=== PATIENT | male | born 1990 | race Caucasian/White ===

== ENCOUNTER → 2016-09-22 | Outpatient (CLI) | payer BC ==
--- NOTE | 2016-09-22 15:27 | DIAGNOSTIC IMAGING REPORT ---
LEFT FOOT 3 VIEWS CLINICAL HISTORY: Left foot pain. FINDINGS: 3 views of the left foot are obtained. No prior studies are available for comparison at the time of dictation. The skeletal structures are well mineralized. No fracture is seen. The joint spaces of the foot are maintained. Soft tissue swelling is present along the dorsal aspect of the foot. A small os trigonum is incidentally noted. IMPRESSION: Soft tissues swelling with no radiographic evidence of left foot fracture. Electronically signed by: Kel Sun M.D. 09/22/2016 3:26 PM Dictated Date/Time: 09/22/2016 3:24 PM
== END | disposition home or self-care (01) ==
LOC: C.LABBC 14:58
PROVIDERS: ATTEND Physician Assistant Medical
DX: M79.672 Pain in left foot (principal)

== ENCOUNTER 2020-10-07 05:52 | Inpatient (IN) ==
[2020-10-07] MEDS ORDERED: ONDANSETRON INJ 2 MG/ML 2 ML VIAL IV STA (06:35)
[2020-10-07] MEDS ORDERED: MoRPHine SULFATE 4 MG/ML 1 ML CARP\\VIAL IV STA ×2 (06:44→10:03)
[2020-10-07 06:59] LABS: Basophils # (auto) 0.03 K/uL (0-0.2); Basophils % (auto) 0.2 %; Eosinophils # (auto) 0.07 K/uL (0-0.5); Eosinophils % (auto) 0.4 %; Hematocrit (blood only) 45.3 % (42-52); Hemoglobin 16.3 g/dL (14.0-18.0); Immature Granulocytes # (auto) 0.06 K/uL (0.00-0.02); Immature Granulocytes % (auto) 0.3 %; Lymphocytes % (auto) 8.5 %; Mean Corpuscular Hemoglobin 30.9 pg (25-34); Mean Platelet Volume 10.2 fL (7.4-10.4); Monocytes # (auto) 0.93 K/uL (0.11-0.59); Monocytes % (auto) 4.9 %; Neutrophils # (auto) 16.11 K/uL (1.4-6.5); Neutrophils % (auto) 85.7 %; Platelet Count 594 K/uL (130-400); RDW Coefficient of Variation 12.7 % (11.5-14.5); RDW Standard Deviation 40.3 fL (36.4-46.3); Red Blood Count 5.27 M/uL (4.7-6.1)
[2020-10-07 07:17] LABS: Albumin Level 4.6 gm/dl (3.4-5.0); BUN Creatinine Ratio 14.3 (10-20); Calcium 9.2 mg/dl (8.5-10.1); Creatinine Clr Calc Pharmacy 133.4 ml/min; Est GFR (African American) 131.5 ml/min; Est GFR (Non-African American) 113.5 ml/min; Potassium 3.9 mmol/L (3.5-5.1)
[2020-10-07 07:19] LABS: Albumin Globulin Ratio 1.5 (0.9-2); Bilirubin,Total 0.6 mg/dl (0.2-1); Globulin 3.1 gm/dl (2.5-4.0); Total Protein 7.7 gm/dl (6.4-8.2)
--- NOTE | 2020-10-07 07:40 | Emergency Department Note ---
History of Present Illness General Chief complaint: Flank Pain Stated complaint: SEVERE PAIN RT SIDE TORSO BT SOULDER/HIP Time Seen by Provider: 10/07/20 06:37 History of Present Illness Maximum Pain Intensity: 9 30-year-old male presents to the ED with a chief complaint of right upper qu adrant abdominal pain and lower chest pain. The patient states that his symptoms have been intermittent mainly with fatty foods. The patient states that this has been going on since April, since he had his Covid vaccine. The patient states that yesterday he had a fatty meal and felt like he was having intense gas pain and bloating in the right upper quadrant and right lower chest as well as the right shoulder blade. He states that he did have some nausea and vomiting last night. His symptoms persisted so he came to the ED this morning for evaluation. Movement seems to make his symptoms worse. Home Medications Medication Instructions Recorded Confirmed Type cetirizine 10 mg capsule (Zyrtec) 10 mg PO DAILY 09/20/18 10/07/20 History aspirin 81 mg tablet,delayed 81 mg PO DAILY 10/07/20 10/07/20 History release (Aspirin Low Dose) Allergies Allergy/AdvReac Type Severity Reaction Status Date / Time No Known Allergies Allergy Verified 10/07/20 08:15 Past Med/Surg History Medical History Allergic rhinitis Anxiety Essential thrombocytosis Family History Father Hyperglycemia Mother Hypertension Depression Social History Smoking Status: Never smoker Hx Alcohol Use: No Hx Substance Use: No Preferred Language: American current occupational status: student Physical Activity Frequency Comment: exercises regularly Review of Systems A total of 10 systems reviewed and were otherwise negative Physical Exam Vital Signs Vital Signs - 24 hr 10/07/20 05:57 10/07/20 06:17 10/07/20 06:32 Temperature 36.0 C L Temperature Source Temporal Artery Scan Pulse Rate 53 L 59 L 52 L Pulse Rate [Finger] Pulse Rate from SpO2 Sensor 58 L 52 L Respiratory Rate 24 18 26 H Respiratory Depth Normal Blood Pressure 165/87 H 162/104 H 154/92 H Blood Pressure [Right Arm] Blood Pressure Mean 113 123 112 Blood Pressure Mean [Right Arm] Pulse Oximetry 98 98 98 Oxygen Delivery Method Room Air Sepsis New/Unexplained Change in Mental Status N/A Sepsis Action Taken by Nursing No Action Required 10/07/20 06:58 10/07/20 08:15 10/07/20 09:15 Temperature Temperature Source Pulse Rate Pulse Rate [Finger] 57 L 64 62 Pulse Rate from SpO2 Sensor Respiratory Rate 18 20 18 Respiratory Depth Blood Pressure Blood Pressure [Right Arm] 154/92 H 154/98 H 151/97 H Blood Pressure Mean Blood Pressure Mean [Right Arm] 112 116 115 Pulse Oximetry 97 97 97 Oxygen Delivery Method Room Air Room Air Room Air Sepsis New/Unexplained Change in Mental Status Sepsis Action Taken by Nursing 10/07/20 10:08 Temperature Temperature Source Pulse Rate Pulse Rate [Finger] 101 H Pulse Rate from SpO2 Sensor Respiratory Rate 20 Respiratory Depth Blood Pressure Blood Pressure [Right Arm] 141/81 H Blood Pressure Mean Blood Pressure Mean [Right Arm] 101 Pulse Oximetry 98 Oxygen Delivery Method Room Air Sepsis New/Unexplained Change in Mental Status Sepsis Action Taken by Nursing CONSTITUTIONAL/VITAL SIGNS: Reviewed / noted above. GENERAL: Non-toxic in appearance. INTEGUMENTARY: Warm, dry, and [place]. HEAD: Normocephalic. EYES: without scleral icterus or trauma. ENT/OROPHARYNX: clear and moist. LYMPHADENOPATHY/NECK: Is supple without lymphadenopathy or meningismus. RESPIRATORY: Clear to auscultation bilaterally. No increased work of breathing. CARDIOVASCULAR: Regular rate and rhythm. GI/ABDOMEN: Soft and tender in the right upper quadrant. No organomegaly or pulsatile mass. EXTREMITIES: Warm and well perfused. BACK: No CVA tenderness. NEUROLOGICAL: Intact without focal deficits. PSYCHIATRIC: normal affect. MUSCULOSKELETAL: Normally developed with good muscle tone. TRIAGE NURSING DOCUMENTATION REVIEWED. Course Administered Medications Discontinued Medications Morphine Sulfate (Morphine Sulfate 4 Mg/Ml 1 Ml Carp\Vial) 4 mg IV NOW STA Stop: 10/07/20 06:45 Last Admin: 10/07/20 06:56 Dose: 4 mg Documented by: [id number] Morphine Sulfate (Morphine Sulfate 4 Mg/Ml 1 Ml Carp\Vial) 4 mg IV NOW STA Stop: 10/07/20 10:04 Last Admin: 10/07/20 10:06 Dose: 4 mg Documented by: [id number] Ondansetron HCl (Ondansetron Inj 2 Mg/Ml 2 Ml Vial) 4 mg IV NOW STA Stop: 10/07/20 06:36 Last Admin: 10/07/20 06:38 Dose: 4 mg Documented by: [id number] Medical Decision Making Differential Diagnosis Differential considered: pancreatitis, hepatitis, acute cholecystitis, AAA, UTI, pyelonephritis, kidney stones, appendicitis, diverticulitis, shingles, bowel obstruction, mesenteric ischemia, intussusception,hernia, testicular torsion. Medical Records Attestation: I reviewed the patient's medical records. Home Medications Current Medication List: was personally reviewed by me Laboratory Data Attestation: I reviewed the patient's lab results. Result diagrams: 10/07/20 06:20 10/07/20 06:20 Lab Results 10/07/20 10/07/20 10/07/20 Range/Units 06:20 06:20 09:20 WBC 18.80 H (4.8-10.8) K/uL RBC 5.27 (4.7-6.1) M/uL Hgb 16.3 (14.0-18.0) g/dL Hct 45.3 (42-52) % MCV 86.0 (80-100) fL MCH 30.9 (25-34) pg MCHC 36.0 (32-36) g/dL RDW Std Deviation 40.3 (36.4-46.3) fL RDW Coeff of Yahir 12.7 (11.5-14.5) % Plt Count 594 H (130-400) K/uL MPV 10.2 (7.4-10.4) fL Immature Gran % (Auto) 0.3 % Neut % (Auto) 85.7 % Lymph % (Auto) 8.5 % [place] % (Auto) 4.9 % Eos % (Auto) 0.4 % Baso % (Auto) 0.2 % Neut # (Auto) 16.11 H (1.4-6.5) K/uL Lymph # (Auto) 1.60 (1.2-3.4) K/uL [place] # (Auto) 0.93 H (0.11-0.59) K/uL Eos # (Auto) 0.07 (0-0.5) K/uL Baso # (Auto) 0.03 (0-0.2) K/uL Immature Gran # (Auto) 0.06 H (0.00-0.02) K/uL Sodium 136 (136-145) mmol/L Potassium 3.9 (3.5-5.1) mmol/L Chloride 103 (98-107) mmol/L Carbon Dioxide 28 (21-32) mmol/L Anion Gap 5.0 (3-11) BUN 13 (7-18) mg/dl Creatinine 0.91 (0.6-1.4) mg/dl Est Cr Clr Drug Dosing 133.4 ml/min Est GFR ( Amer) 131.5 ml/min Est GFR (Non-Af Amer) 113.5 ml/min BUN/Creatinine Ratio 14.3 (10-20) Glucose 130 H (70-99) mg/dl Calcium 9.2 (8.5-10.1) mg/dl Total Bilirubin 0.6 (0.2-1) mg/dl AST 11 L (15-37) U/L ALT 32 (12-78) U/L Alkaline Phosphatase 47 (45-117) U/L Total Protein 7.7 (6.4-8.2) gm/dl Albumin 4.6 (3.4-5.0) gm/dl Globulin 3.1 (2.5-4.0) gm/dl Albumin/Globulin Ratio 1.5 (0.9-2) Lipase 95 (73-393) U/L Urine Color Yellow Urine Appearance Clear (Clear) Urine pH 6.0 (4.5-7.5) Ur Specific [place] 1.024 (1.000-1.030) Urine Protein Negative (Negative) Urine Glucose (UA) Negative (Negative) Urine Ketones Trace H (Negative) Urine Blood Negative (Negative) Urine Nitrite Negative (Negative) Urine Bilirubin Negative (Negative) Urine Urobilinogen Negative (Negative) Ur Leukocyte Esterase Negative (Negative) Imaging Data Radiologist's Impression: Gallbladder Ultrasound 10/07/20 06:44 US gallbladder CLINICAL HISTORY: Right upper quadrant abdominal pain. COMPARISON STUDY: No previous studies for comparison. FINDINGS: Liver is sonographically normal. There is no biliary ductal dilatation. The common bile duct measures 4 mm in caliber. The gallbladder is filled with stones and sludge. Gallbladder wall thickening is noted. Gallbladder wall measures 5 mm in thickness. There is gallbladder wall edema. Sonographic Sweet sign could not be assessed for in this patient. Pancreatic body is normal. Head and tail are largely obscured by overlying bowel gas. There is no right hydronephrosis. IMPRESSION: 1. Cholelithiasis with edematous, thickened gallbladder wall. Unable to assess for sonographic Sweet sign. Acute cholecystitis cannot be excluded. If clinically indicated, a nuclear medicine hepatobiliary scan could be obtained. 2. No biliary ductal dilatation. 3. Largely obscured pancreas. ACT 112: Negative or not required by law. Electronically signed by: Henri Braun M.D. 10/07/2020 7:57 AM ECG Data Attestation: I personally reviewed and interpreted this ECG as follows: Additional Comments: Twelve-lead EKG: Per my interpretation there is a sinus bradycardia at a rate of 49. No ST elevation. No PVCs. Normal QTC. MDM Narrative 30-year-old male presents with right upper quadrant abdominal pain that is worse with fatty foods that has been intermittent for the past several months. Last n ight after eating fatty foods his symptoms got worse and persisted. He came in for evaluation of this. His vital signs reveal some mild hypertension. His EKG shows a sinus bradycardia at a rate of 49. White blood cell count was 18.8. Metabolic panel was unremarkable and lipase was negative. Ultrasound of the gallbladder suggest cholecystitis. I spoke with general surgery. They are taking him to the operating room. Impression & Plan Acute cholecystitis Discharge Plan Visit Data Chief Complaint: Flank Pain Stated Complaint: SEVERE PAIN RT SIDE TORSO BT SOULDER/HIP ED Provider: Farhan Robles Discharge Problem: Acute cholecystitis Patient Disposition: Being Evaluated by Surgeon Forms Stand Alone Forms: My [facility], Virtual Emergency Department, Important Visit Information Prescriptions Prescriptions: No Action Zyrtec 10 mg capsule 10 mg PO DAILY RF: 0 aspirin [Aspirin Low Dose] 81 mg Tablet,Delayed Release (Dr/Ec) 81 mg PO DAILY RF: 0 Referrals Referrals: PCP,NO [Primary Care Provider] -
--- NOTE | 2020-10-07 07:58 | Ultrasound Report ---
US gallbladder CLINICAL HISTORY: Right upper quadrant abdominal pain. COMPARISON STUDY: No previous studies for comparison. FINDINGS: Liver is sonographically normal. There is no biliary ductal dilatation. The common bile antonio t measures 4 mm in caliber. The gallbladder is filled with stones and sludge. Gallbladder wall thicke jared is noted. Gallbladder wall measures 5 mm in thickness. There is gallbladder wall edema. Sonograp hic Sweet sign could not be assessed for in this patient. Pancreatic body is normal. Head and tail a re largely obscured by overlying bowel gas. There is no right hydronephrosis. IMPRESSION: 1. Cholelithiasis with edematous, thickened gallbladder wall. Unable to assess for sonographic Sweet sign. Acute cholecystitis cannot be excluded. If clinically indicated, a nuclear medicine hepatobili twin scan could be obtained. 2. No biliary ductal dilatation. 3. Largely obscured pancreas. ACT 112: Negative or not required by law. Electronically signed by: Henri Braun M.D. 10/07/2020 7:57 AM
[2020-10-07 09:51] LABS: Appearance Urine Clear (Clear); Bilirubin Urine Negative (Negative); Blood Urine Negative (Negative); Color Urine Yellow; Glucose Urine UA Negative (Negative); Ketones Urine Trace (Negative); Leukocyte Esterase Urine Negative (Negative); Nitrite Urine Negative (Negative); Protein Urine Negative (Negative); Specific Gravity Urine 1.024 (1.000-1.030); Urobilinogen Urine Negative (Negative)
[2020-10-07] MEDS ORDERED: cefOXitin 2,000 MG/60 ML BAG IV ONE (11:08)
--- NOTE | 2020-10-07 11:16 | History & Physical Report ---
Date of Service October 07, 2020 Assessment & Plan (1) Acute cholecystitis: Plan: Will plan for laparoscopic cholecystectomy today. Will ask hospitalist to assist in recs for his thrombocytosis. Dr. Sykesed on the patient in the emergency room and reviewed his laboratories and ultrasound/CT scan He obviously has evidence of acute cholecystitis and the plan would be laparoscopic cholecystectomy possible open cholecystectomy We will add him on the OR schedule for today. History of Present Illness Primary Care Provider: NO PCP 30 y/o male with right side abdominal pain that began Monday night and continued yesterday and this morning. Also had N/V. This is his 6th attack and most severe since April. Usually occurs after fatty or large meals but did not notice the pattern until recently. Allergies Allergy/AdvReac Type Severity Reaction Status Date / Time No Known Allergies Allergy Verified 10/07/20 08:15 Home Medications Medication Instructions Recorded Confirmed Type cetirizine 10 mg capsule (Zyrtec) 10 mg PO DAILY 09/20/18 10/07/20 History aspirin 81 mg tablet,delayed 81 mg PO DAILY 10/07/20 10/07/20 History release (Aspirin Low Dose) Past Med/Surg History Medical History Allergic rhinitis Anxiety Essential thrombocytosis Family History Father Hyperglycemia Mother Hypertension Depression Social History Smoking Status: Never smoker Hx Alcohol Use: No Hx Substance Use: No Preferred Language: Samoan current occupational status: student Physical Activity Frequency Comment: exercises regularly Review of Systems Constitutional: no fever and no chills Gastrointestinal: + abdominal pain, + nausea and + vomiting Physical Exam Constitutional: WD/WN, vitals as above Respiratory: normal respiratory effort, lungs clear to auscultation Cardiovascular: RRR, no murmur, no edema Gastrointestinal (Abdomen): Inspection/Auscultation: abdomen normal to inspection Percussion/Palpation: + abdomen tender (RUQ) and abdomen soft Skin: no rashes, warm and dry Results & Data Results & Data ([facility]) Vital Signs (Past 12 Hours) Vital Signs Temp Pulse Pulse Resp BP BP Pulse Ox 10/07/20 10:08 101 H 20 141/81 H 98 10/07/20 09:15 62 18 151/97 H 97 10/07/20 08:15 64 20 154/98 H 97 10/07/20 06:58 57 L 18 154/92 H 97 10/07/20 06:32 52 L 26 H 154/92 H 98 10/07/20 06:17 59 L 18 162/104 H 98 10/07/20 05:57 36.0 C L 53 L 24 165/87 H 98
[2020-10-07] MEDS ORDERED: LIDOCAINE 2% 2 ML VIAL/AMP(20MG/ML) INFIL ONE (11:37)
[2020-10-07] MEDS ORDERED: DEXAMETHASONE SOD INJ 4 MG/ML VIAL ONE (11:37)
[2020-10-07] MEDS ORDERED: ROCURONIUM BROMIDE 10 MG/ML 5 ML VIAL IV ONE (11:37)
[2020-10-07] MEDS ORDERED: PROPOFOL IV EMULSION 10 MG/ML 20 ML VIAL IV ONE (11:37)
[2020-10-07] MEDS ORDERED: ONDANSETRON INJ 2 MG/ML 2 ML VIAL ONE ×2 (11:37→14:05)
[2020-10-07] MEDS ORDERED: fentaNYL citrate 100 MCG/2 ML VIAL ONE ×2 (11:40→13:47)
[2020-10-07] MEDS ORDERED: MIDAZOLAM HCL 1 MG/ML 2ML VIAL ONE (11:40)
[2020-10-07] MEDS ORDERED: ACETAMINOPHEN 1000 MG/100 ML IV IV ONE (11:47)
[2020-10-07] MEDS ORDERED: BUPIVACAINE 0.5 % 5 MG/1 ML MPF 30ML VIAL ONE (12:03)
[2020-10-07] MEDS: LACTATED RINGER'S 1,000 ML IV SCH ×2 (12:17→22:37)
[2020-10-07] MEDS ORDERED: fentaNYL citrate 100 MCG/2 ML VIAL IV PRN (13:41)
[2020-10-07] MEDS ORDERED: HYDROmorphone INJ 1 MG/ML SYRINGE IV PRN ×2 (13:41→15:38)
[2020-10-07] MEDS ORDERED: ePHEDrine sulfate 50 MG/ML AMP IV PRN (13:41)
[2020-10-07] MEDS ORDERED: ATROPINE SULFATE 0.1 MG/ML 10ML SYR IV PRN (13:41)
[2020-10-07] MEDS ORDERED: ONDANSETRON INJ 2 MG/ML 2 ML VIAL IV PRN ×2 (13:41→15:38)
--- NOTE | 2020-10-07 13:41 | Anesthesiology Consultation ---
Date of Service October 07, 2020 Assessment & Plan (1) Encounter for pre-operative examination: Chart Review Chart Review: Acceptable Risk for Surgery and Patient NOT seen in Pre Admission Testing Consults Requested none History Surgery Operation Date: 10/07/20 11:10 Proposed Procedures p Laparoscopic Cholecystectomy - Todd Bowling MD, FACS Height/Weight Height: 5 ft 9 in Weight: 90.8 kg Allergies Allergy/AdvReac Type Severity Reaction Status Date / Time No Known Allergies Allergy Verified 10/07/20 08:15 Medications Home Medications Medication Instructions Recorded Confirmed Last Taken cetirizine 10 mg capsule (Zyrtec) 10 mg PO DAILY 09/20/18 10/07/20 10/07/20 aspirin 81 mg tablet,delayed 81 mg PO DAILY 10/07/20 10/07/20 10/07/20 release (Aspirin Low Dose) Active Medications Generic Name Dose Route Start Last Admin Trade Name Freq PRN Reason Stop Dose Admin Lactated Ringer's 1,000 mls @ 125 mls/hr 10/07/20 11:15 10/07/20 12:17 Lr IV 11/06/20 11:14 125 mls/hr .Q8H ART Administration NPO Date Last Intake of Fluids: 10/06/20 Time Last Intake of Fluids: 23:55 Date Last Intake of Solids: 10/06/20 Time Last Intake of Solids: 19:00 Past Medical History Medical History Allergic rhinitis Anxiety Essential thrombocytosis Exercise / Class Metabolic Activity II 4-5 Yardwork/Stairs/Walk up hill Past Family History Family History Father Hyperglycemia Mother Hypertension Depression Past Anesthesia History No Hx of Anesthesia Complications and No Family Hx of Anesthesia Complications History of PONV No Hx of PONV and No Hx of Motion Sickness Social History Smoking Status: Never smoker Do You Dip or Chew Tobacco: No Hx Alcohol Use: No Hx Substance Use: No Physical Exam Vital Signs Last Vital Signs Temp 36.8 C 10/07/20 13:00 Pulse 75 10/07/20 13:00 Resp 18 10/07/20 13:00 BP 163/105 H 10/07/20 13:00 Pulse Ox 100 10/07/20 13:00 Testing Laboratory Results 10/07/20 06:20 10/07/20 06:20 Urine Color Yellow 10/07/20 09:20 Urine Appearance Clear (Clear) 10/07/20 09:20 Urine pH 6.0 (4.5-7.5) 10/07/20 09:20 Ur Specific [place] 1.024 (1.000-1.030) 10/07/20 09:20 Urine Protein Negative (Negative) 10/07/20 09:20 Urine Glucose (UA) Negative (Negative) 10/07/20 09:20 Urine Ketones Trace (Negative) H 10/07/20 09:20 Urine Nitrite Negative (Negative) 10/07/20 09:20 Ur Leukocyte Esterase Negative (Negative) 10/07/20 09:20
[2020-10-07] MEDS ORDERED: NEOSTIGMINE METHYLSULFATE 1 MG/ML 10ML VIAL ONE (14:05)
[2020-10-07] MEDS ORDERED: GLYCOPYRROLATE 0.2 MG/ML VIAL ONE (14:05)
[2020-10-07] MEDS ORDERED: FLOSEAL HEMOSTATIC MATRIX 10ML TOP ONE (14:08)
[2020-10-07] MEDS ORDERED: ACETAMINOPHEN 1,000 MG/100 ML VIAL IV ONE (14:24)
--- NOTE | 2020-10-07 14:24 | Post Operative Brief Note ---
PG Immediate Post Op with CF Date of Surgery October 07, 2020 Pre & Post Diagnosis Operation Date: 10/07/20 11:10 Pre-Op Diagnosis: Acute Cholecystitis Post-Op Diagnosis: Acute Cholecystitis, adhesions Necrotizing cholecystitis I identified the patient and participated in the time-out.: Yes Procedure Operation Date: 10/07/20 11:10 Actual Procedures p Laparoscopic Cholecystectomy(Not Applicable) - Todd Bowling MD, FACS Surgeon Todd Bowling MD, FACS [employer] Leti Garcia Estimated Blood Loss 10 Findings Consistent with Post-Op Diagnosis Severe acute and chronic inflammation with adhesions Severe edema and necrotizing cholecystitis Specimens Specimen Description: A. Gallbladder
--- NOTE | 2020-10-07 15:05 | Anesthesiology Progress Note ---
Date of Service October 07, 2020 Anesthesia Post Procedure Vital Signs Vital Signs: Temp Pulse Pulse Pulse Resp BP BP 10/07/20 15:00 73 16 148/79 H 10/07/20 14:50 71 20 143/78 H 10/07/20 14:41 36.1 C L 68 20 127/86 10/07/20 13:00 36.8 C 75 18 163/105 H 10/07/20 12:51 84 18 158/94 H 10/07/20 11:47 69 18 160/99 H 10/07/20 10:08 101 H 20 141/81 H 10/07/20 09:15 62 18 151/97 H 10/07/20 08:15 64 20 154/98 H 10/07/20 06:58 57 L 18 154/92 H 10/07/20 06:32 52 L 26 H 154/92 H 10/07/20 06:17 59 L 18 162/104 H 10/07/20 05:57 36.0 C L 53 L 24 165/87 H Pulse Ox 10/07/20 15:00 98 10/07/20 14:50 100 10/07/20 14:41 100 10/07/20 13:00 100 10/07/20 12:51 96 10/07/20 11:47 98 10/07/20 10:08 98 10/07/20 09:15 97 10/07/20 08:15 97 10/07/20 06:58 97 10/07/20 06:32 98 10/07/20 06:17 98 10/07/20 05:57 98 Pain Intensity Abdomen: Pain Intensity: 5 Transfer of Care Handoff Completed per policy Notes Mental Status: alert / awake / arousable and participated in evaluation Patient Amnestic to Procedure: Yes Nausea / Vomiting: adequately controlled Pain: adequately controlled Airway Patency, RR, SpO2: stable & adequate BP & HR: stable & adequate Hydration State: stable & adequate Anesthetic Complications: no major complications apparent and Pt Satisfied with anesthetic care
--- NOTE | 2020-10-07 15:20 | Operative Report (OR) ---
DATE OF OPERATION: 10/07/2020. NAME OF OPERATION: Laparoscopic cholecystectomy with lysis of adhesions. PREOPERATIVE DIAGNOSIS: Acute cholecystitis. POSTOPERATIVE DIAGNOSES: Acute cholecystitis with chronic cholecystitis and necrotizing cholecystiti s with adhesions. STAFF SURGEON: Todd Bowling MD. POWER BRAKE OPERATOR: Tay Garcia PA-C. ANESTHESIA: General. DESCRIPTION OF PROCEDURE: The patient was brought in the operating room and placed on the operating table in supine position. A 0.5% plain Marcaine was used to anesthetize all incisions. Incision was made above the umbilicus, carrying dissection down to the fascia, placing a Veress needle producing pneumoperitoneum. An 11 mm port placed at this level and under visualization, three 5 mm ports were placed, one cephalad and two laterally. Gallbladder was grasped and retracted. Actually we had to a spirate the gallbladder first, it contained sludge and stones. There were significant adhesions to t he gallbladder, chronic in nature. These were taken down. Dissection was carried out the binh hepa tis indicating severe inflammation and edema, cystic duct and cystic artery were identified, clipped and transected. Then, the gallbladder dissected away from the liver bed in the usual fashion. It di d show evidence of necrotizing cholecystitis. After appropriate hemostasis and irrigation, FloSeal w as used in the hepatic bed. Gallbladder was placed in an Endobag. I did have to enlarge the fascial defect to remove the gallbladder because of its size, it was removed and then the fascia at the umbi licus closed using 0 PDS suture and then subcutaneous tissue reapproximated using 2-0 plain suture, t hen the skin reapproximated using a subcuticular 4-0 Monocryl with Dermabond. My resident assistant helped wi th prepping, draping, removal of the gallbladder and closure of the wound. Job ID: [id number]
[2020-10-07] MEDS ORDERED: PROMETHAZINE HCL 25 MG in SODIUM CHLORIDE 0.9% 50 ML IV PRN (15:38)
[2020-10-07] MEDS ORDERED: PROMETHAZINE HCL 12.5 MG in SODIUM CHLORIDE 0.9% 50 ML IV PRN (15:38)
--- NOTE | 2020-10-07 17:33 | Hospitalist Consultation ---
Date of Consultation October 07, 2020 Assessment & Plan (1) Essential thrombocytosis: - Pt with JAK2 mutation consistent with essential thrombocytosis maintained on daily ASA 81 mg daily; follows with Hematology in [place] - IPSET score is 2 simply because he has JAK2 mutation which places him at a 2.35% risk of thrombosis annually; patient still has his spleen -- Given recent surgery bleeding would be more of a concern at this time over thrombosis however suspect risk to be low - We do have some labs to compare and it appears his plts range from 450-594 - suspect some of this thrombocytosis on today's labs could be reactive in the setting of acute cholecystitis - Given near normal plts would not be aggressive with anticoagulation or cytoreductive treatments - If safe from a surgical standpoint can continue his daily aspirin therapy; recommend ambulation and movement and would not need to add the addition of anticoagulation - AM labs for monitoring (2) Acute cholecystitis: - S/P Lab Kami on 07 October with evidence of necrotizing cholecystitis - Surgical management per primary team Recommend continuation of daily ASA if safe from surgical perspective; AM labs to assess for plts and Hgb - may see a reduction in platelets due to dilution with fluids and may be partially reactive in setting of infection. Hospitalists will continue to follow Supervising Physician Co-Signing Physician Notes Patient seen and examined with Mackenzie Urbina PA-C. I agree with her exam findings, review of systems, assessment and plan. I personally reviewed the lab work and imaging as well. patient doing okay after surgery, ongoing gall bladder symptoms on and off for a few weeks/months? vitals stable reviewed h/o thrombocytosis, NNIA mutation platelets are reasonably well controlled would continue aspirin, encourage him to ambulate, take deep breaths discharge when okay with general surgery History of Present Illness Reason for Consultation: Essential Thrombocytosis Attending Physician: Todd Bowling MD, FACS History of Present Illness Mr. Recio is a 30 y/o male with PMHx of Essential Thrombocytosis who is S/P Lap Kami due to acute cholecystitis with necrotizing cholecystitis on 07 October. Pt is doing well post-operatively with minimal pain at this time. He was diagnosed with Essential Thrombocytosis approx. 1 to 1.5 years ago but reports having symptoms of it for about 2 years. He has not had any issues with blood clots or bleeding since diagnosis. He did have his wisdom teeth out 7 years ago but this was prior to the diagnosis. Even so, did not have any issues with bleeding/clotting after that. Pt is from [place] and visiting his parents but is established with a [employer] back home. Allergies Allergy/AdvReac Type Severity Reaction Status Date / Time No Known Allergies Allergy Verified 10/07/20 08:15 Home Medications Medication Instructions Recorded Confirmed Type cetirizine 10 mg capsule (Zyrtec) 10 mg PO DAILY 09/20/18 10/07/20 History aspirin 81 mg tablet,delayed 81 mg PO DAILY 10/07/20 10/07/20 History release (Aspirin Low Dose) hydrocodone 5 mg-acetaminophen 325 1 tab PO Q4H PRN #30 tab 10/08/20 Rx mg tablet Patient History Medical History Allergic rhinitis Anxiety Essential thrombocytosis Surgical History (Updated 10/08/20 @ 07:20 by Todd Bowling MD, FACS) History of laparoscopic cholecystectomy Family History Father Hyperglycemia Mother Hypertension Depression Social History Smoking Status: Never smoker Do You Dip or Chew Tobacco: No; Hx Alcohol Use: No Hx Substance Use: No Preferred Language: Icelandic Communication Ability: Effective Experimental Electronics Developer Required: No Beliefs That Will Affect Care: None Current Living Situation: Alone current occupational status: student Other Information That Helps Us Care for You: No Feels Safe at Home: Yes Safety Concerns: Feels Safe At This Time Physical Activity Frequency Comment: exercises regularly Assistive Devices: Glasses Review of Systems Review of Systems: REVIEW OF SYSTEMS General/Constitutional: Denies fever/chills, fatigue, weakness, weight gain/loss ENT: Denies visual changes, nasal drainage, hearing loss, sore throat, trouble swallowing Cardiovascular: Denies chest pain, palpitations, edema Respiratory: Denies cough, sputum, SOB, wheezing, orthopnea GI: + abdominal pain at surgical sites; Denies nausea, vomiting, constipation, diarrhea, melena/hematochezia : Denies dysuria, frequency, hematuria Musculoskeletal: + shoulder pain (improving); Denies any other joint/muscle aches, weakness, swelling Neurologic: Denies dizziness/lightheadedness, numbness/tingling, weakness Hematologic/Lymphatic: Denies bleeding/clotting abnormalities Skin: Denies rash, itch, new skin changes, easy bruising Physical Exam Physical Exam: PHYSICAL EXAM General Appearance: WDWN in NAD who is A&O x 3 HEENT: Head is normocephalic/atraumatic; EOMI; PERRLA; Hearing grossly intact; Mucous membranes moist; Pharynx negative for exudate/lesions Neck: Supple; Trachea midline; Neg JVD; Neg lymphadenopathy Heart: RRR with no M/G/R Lungs: CTA in all lung chinchilla bilaterally; Respirations unlabored; Neg accessory muscle use Abdomen: Soft, tender around surgical sites, non-distended; Positive BS x 4 quadrants Extremities: Capillary refill < 2 seconds; Neg cyanosis or edema Neurological: Speech clear; Gross motor/sensory function intact; Neg focal neurologic deficits Psychiatric: Appropriate mood/affect Skin: Normal Color; Warm/Dry; Neg rashes, ecchymosis, lacerations/ulcerations Results & Data Results & Data ([facility]) Vital Signs (Past 12 Hours) Vital Signs Temp Pulse Pulse Pulse Resp BP BP 10/07/20 16:27 37.2 C 76 17 125/81 10/07/20 15:58 36.8 C 76 18 133/80 10/07/20 15:39 36.6 C 72 18 141/84 H 10/07/20 15:20 80 18 140/81 10/07/20 15:10 36.7 C 76 16 140/83 10/07/20 15:00 73 16 148/79 H 10/07/20 14:50 71 20 143/78 H 10/07/20 14:41 36.1 C L 68 20 127/86 10/07/20 13:00 36.8 C 75 18 163/105 H 10/07/20 12:51 84 18 158/94 H 10/07/20 11:47 69 18 160/99 H 10/07/20 10:08 101 H 20 141/81 H 10/07/20 09:15 62 18 151/97 H 10/07/20 08:15 64 20 154/98 H 10/07/20 06:58 57 L 18 154/92 H 10/07/20 06:32 52 L 26 H 154/92 H 10/07/20 06:17 59 L 18 162/104 H 10/07/20 05:57 36.0 C L 53 L 24 165/87 H Pulse Ox 10/07/20 16:27 95 10/07/20 15:58 95 10/07/20 15:39 95 10/07/20 15:20 94 10/07/20 15:10 96 10/07/20 15:00 98 10/07/20 14:50 100 10/07/20 14:41 100 10/07/20 13:00 100 10/07/20 12:51 96 10/07/20 11:47 98 10/07/20 10:08 98 10/07/20 09:15 97 10/07/20 08:15 97 10/07/20 06:58 97 10/07/20 06:32 98 10/07/20 06:17 98 10/07/20 05:57 98 PG Care Time/CCT Total # of Minutes Spent Total Time Spent with Patient: Total time spent is greater than 50% in coordination of care (as documented) at patient's floor/unit and/or counseling patient: Coding Level of Care Code 75445 Inpt Consult Level 3 Diagnoses Acute cholecystitis K81.0 Essential thrombocytosis D47.3
[2020-10-07] MEDS: HYDROmorphone INJ 0.5 MG/0.5 ML SYR IV PRN (17:34)
[2020-10-07] MEDS: oxyCODONE HCL IR 5 MG TAB (IMMEDIATE RELEASE) PO PRN (20:32)
[2020-10-08] MEDS: HYDROmorphone INJ 0.5 MG/0.5 ML SYR IV PRN ×2 (01:22→05:33)
[2020-10-08] MEDS: oxyCODONE HCL IR 5 MG TAB (IMMEDIATE RELEASE) PO PRN ×3 (03:51→14:45)
[2020-10-08] MEDS: LACTATED RINGER'S 1,000 ML IV SCH (05:34)
--- NOTE | 2020-10-08 05:45 | Electrocardiogram Report ---
Test Reason : Blood Pressure : / mmHG Vent. Rate : 049 BPM Atrial Rate : 049 BPM P-R Int : 158 ms QRS Dur : 092 ms QT Int : 436 ms P-R-T Axes : 047 051 040 degrees QTc Int : 393 ms Sinus bradycardia Otherwise normal ECG No previous ECGs available Confirmed by Kade Vanegas ([id number]) on 10/08/2020 5:45:34 AM Referred By: REFERRED SELF Confirmed By:Kade Vanegas
[2020-10-08 06:09] LABS: Basophils # (auto) 0.02 K/uL (0-0.2); Basophils % (auto) 0.1 %; Eosinophils # (auto) 0.02 K/uL (0-0.5); Eosinophils % (auto) 0.1 %; Hematocrit (blood only) 43.2 % (42-52); Hemoglobin 15.2 g/dL (14.0-18.0); Immature Granulocytes # (auto) 0.06 K/uL (0.00-0.02); Immature Granulocytes % (auto) 0.3 %; Lymphocytes # (auto) 2.22 K/uL (1.2-3.4); Lymphocytes % (auto) 10.8 %; Mean Corpuscular Hemoglobin 30.5 pg (25-34); Mean Corpuscular Hgb Conc 35.2 g/dL (32-36); Mean Corpuscular Volume 86.7 fL (80-100); Mean Platelet Volume 10.1 fL (7.4-10.4); Monocytes # (auto) 1.75 K/uL (0.11-0.59); Monocytes % (auto) 8.5 %; Neutrophils # (auto) 16.46 K/uL (1.4-6.5); Neutrophils % (auto) 80.2 %; Platelet Count 561 K/uL (130-400); RDW Coefficient of Variation 13.1 % (11.5-14.5); RDW Standard Deviation 41.5 fL (36.4-46.3); Red Blood Count 4.98 M/uL (4.7-6.1); White Blood Count 20.53 K/uL (4.8-10.8)
[2020-10-08 06:25] LABS: Albumin Level 3.7 gm/dl (3.4-5.0); BUN Creatinine Ratio 10.3 (10-20); Bilirubin Direct 0.3 mg/dl (0-0.2); Calcium 9.1 mg/dl (8.5-10.1); Creatinine Clr Calc Pharmacy 130.5 ml/min; Est GFR (African American) 128.1 ml/min; Est GFR (Non-African American) 110.5 ml/min; Potassium 3.9 mmol/L (3.5-5.1)
[2020-10-08 06:28] LABS: Albumin Globulin Ratio 1.1 (0.9-2); Bilirubin,Total 0.9 mg/dl (0.2-1); Globulin 3.3 gm/dl (2.5-4.0); Phosphorus 3.3 mg/dl (2.5-4.9)
--- NOTE | 2020-10-08 07:18 | Surgery Progress Note ---
Date of Service October 08, 2020 Assessment & Plan (1) History of laparoscopic cholecystectomy: Plan: Patient is awake and alert Tolerating some liquids Having some right upper quadrant pain Continue IV antibiotics Encourage ambulation Admission and Anticipated Discharge Date Admission Date: October 07, 2020 Results & Data ([facility]) Vital Signs (Past 12 Hours) Vital Signs Temp Pulse Resp BP Pulse Ox 10/08/20 04:19 36.5 C 74 16 132/89 93 10/07/20 22:29 36.8 C 84 16 138/82 97 10/07/20 20:23 36.8 C 84 16 123/84 95 PG Care Time/CCT Total # of Minutes Spent Total Time Spent with Patient: Total time spent is greater than 50% in coordination of care (as documented) at patient's floor/unit and/or counseling patient: Coding Level of Care Code None Diagnoses History of laparoscopic cholecystectomy Z90.49
[2020-10-08] MEDS ORDERED: ASPIRIN 81 MG ECTAB PO SCH (09:00)
[2020-10-08] MEDS ORDERED: CETIRIZINE HCL 10 MG TABLET PO SCH (09:00)
[2020-10-08] MEDS ORDERED: ENOXAPARIN INJ 40 MG/0.4 ML SYR SQ SCH (09:00)
--- NOTE | 2020-10-08 10:41 | Hospitalist Progress Note ---
Date of Service October 08, 2020 Assessment & Plan (1) Essential thrombocytosis: Plan: - Pt with JAK2 mutation consistent with essential thrombocytosis maintained on daily ASA 81 mg daily; follows with Hematology in [place] - IPSET score is 2 simply because he has JAK2 mutation which places him at a 2.35% risk of thrombosis annually; patient still has his spleen - We do have some labs to compare and it appears his plts range from 450-594 - suspect some of this thrombocytosis on admission labs could be reactive in the setting of acute cholecystitis - Most recent lab at 561 and will monitor - Given near normal plts does not require Hydroxyurea and did discuss with Heme - If safe from a surgical standpoint can continue his daily aspirin therapy; Lovenox was added; recommend ambulation and movement - AM labs for monitoring (2) Acute cholecystitis: Plan: - S/P Lab Kami on 07 October with evidence of necrotizing cholecystitis - Surgical management per primary team Plan: Recommend continuation of daily ASA if safe from surgical perspective; AM labs to assess for plts and Hgb. Hospitalists will continue to follow Admission and Anticipated Discharge Date Admission Date: October 07, 2020 Subjective Pt reports doing well. Has some RUQ pain mostly with movement but is tolerable. Ambulating and tolerating diet. Plts down to 561. Verbalizes no new complaints Review of Systems Review of Systems: REVIEW OF SYSTEMS General/Constitutional: Denies fever/chills ENT: Denies nasal drainage, sore throat, trouble swallowing Cardiovascular: Denies chest pain, palpitations, edema Respiratory: Denies cough, sputum, SOB, wheezing GI: + abdominal pain at surgical sites; Denies nausea, vomiting, constipation, diarrhea, melena/hematochezia : Denies dysuria Musculoskeletal: + shoulder pain (improving); Denies any other joint/muscle aches, weakness, swelling Neurologic: Denies dizziness/lightheadedness, numbness/tingling Hematologic/Lymphatic: Denies bleeding/clotting abnormalities Skin: Denies rash, itch, new skin changes, easy bruising Physical Exam Physical Exam: PHYSICAL EXAM General Appearance: WDWN in NAD who is A&O x 3 HEENT: Head is normocephalic/atraumatic; Hearing grossly intact; Mucous membrane s moist Neck: Supple; Trachea midline Heart: RRR with no M/G/R Lungs: CTA in all lung chinchilla bilaterally; Respirations unlabored; Neg accessory muscle use Abdomen: Soft, tender around surgical sites, non-distended; Positive BS x 4 quadrants Extremities: Neg cyanosis or edema Neurological: Speech clear; Gross motor/sensory function intact; Neg focal neurologic deficits Psychiatric: Appropriate mood/affect Skin: Normal Color; Warm/Dry Results & Data Results & Data ([facility]) Vital Signs (Past 12 Hours) Vital Signs Temp Pulse Resp BP Pulse Ox 10/08/20 07:00 36.9 C 68 20 102/63 94 10/08/20 04:19 36.5 C 74 16 132/89 93 PG Care Time/CCT Total # of Minutes Spent Total Time Spent with Patient: Total time spent is greater than 50% in coordination of care (as documented) at patient's floor/unit and/or counseling patient: Coding Level of Care Code 54147 Inpt Consult Level 2 Diagnoses Essential thrombocytosis D47.3 Acute cholecystitis K81.0
--- NOTE | 2020-10-13 10:08 | Discharge Summary ---
Date of Service October 13, 2020 Principal Diagnosis Acute cholecystitis Discharge Exam Constitutional WD/WN, vitals as above Gastrointestinal (Abdomen) Inspection/Auscultation: + abdominal surgical incision (clean, dry); abdomen not distended Percussion/Palpation: abdomen soft Discharge Data Allergies Allergy/AdvReac Type Severity Reaction Status Date / Time No Known Allergies Allergy Verified 10/07/20 08:15 Consultations 10/07/20 11:16 Consult Hospitalist Stat Procedures Performed Operation Date: 10/07/20 11:10 Actual Procedures p Laparoscopic Cholecystectomy(Not Applicable) - Tdod Bowling MD, FACS Ordered Studies 10/07/20 06:44 US gallbladder Stat Hospital Course (1) Acute cholecystitis: 30 y/o male presented to the ER with abdominal pain. White count was 18,000 and US was consistent with acute cholecystitis. He was taken to the operating room for laparoscopic cholecystectomy and transferred to the surgical floor for overnight observation. We asked the hospitalist to make recommendat ions for his essential thrombocytosis. His aspirin was continued, he was given Lovenox as regular DVT prophylaxis. In the morning he was able to advance diet and tolerate oral analgesics and was stable for discharge home later in day. Total Time Total Time Spent Total Time Spent (In Minutes): 15 Discharge Plan Discharge Items Patient Disposition: Home - Self-Care Reason For Visit: CHOLECYSTITIS Discharge Diagnosis: Necrotizing cholecystitis Activity: As commented below Activity Comment: Weight 3 weeks Lifting: No more than 25 pounds Bathing Comment: May shower Sexual Activity: When tolerated Exercise Comment: Weight 3 weeks Driving/Machine Use: Resume 3 days after discharge Non-emergency contact: Primary Care Provider and Surgeon Call non-emergency contact if: your pain is not controlled, your temperature is above 101 and your wound has increased drainage Follow-up/Referrals: PCP,NO [Primary Care Provider] - Diet: Regular Addtl Attending Provider Instructions: SPECIAL CARE INSTRUCTIONS: * Cover incisions and change daily for comfort/drainage. *May leave uncovered with Dermabond * May use ibuprofen for pain as tolerated. * * Avoid constipation- * May Use Senokot S and Milk of Magnesium twice daily as directed on the package * * Expect some swelling and bruising. Call your doctor if: * Temperature above 101 degrees * Pain not relieved by pain medicine ordered * There is increased drainage or redness from any incision * You have any unanswered questions or concerns [phone]. FOLLOW UP VISIT: If not already scheduled, please call the office for a follow-up visit. For 2 weeksno sutures to remove OFFICE PHONE NUMBER: Dr. Bowling Office Pending Studies at Discharge: No Stand-Alone Forms: [facility], Work/School Release, Smoking Cessation, Virtual Emergency Department, Important Visit Information Medications and DC Order Prescriptions: New hydrocodone-acetaminophen 5-325 mg tablet 1 tab PO Q4H PRN (Reason: pain) Qty: 30 RF: 0 Continued Zyrtec 10 mg capsule 10 mg PO DAILY RF: 0 aspirin [Aspirin Low Dose] 81 mg Tablet,Delayed Release (Dr/Ec) 81 mg PO DAILY RF: 0 No Action amoxicillin-pot clavulanate [Augmentin] 875-125 mg tablet 1 tab PO BID Qty: 10 RF: 0 Discharge Orders: Discharge Order (Routine); Ordered 10/08/20 Ordered By: Todd Bowling Admission Data Admit Date/Time: 10/07/20 14:31 Attending Provider: Todd Bowling Admit Provider: Todd Bowling Primary Care Provider: PCP,NO Other Providers: Romario Edouard Other Interventions: Discharge Summary Assessment (RN) Last Done: 10/08/20 14:17 Coding Level of Care Code D/C DAY MANAGEMENT <30 MINS Diagnoses Acute cholecystitis K81.0
--- NOTE | 2020-10-13 11:44 | Discharge Summary (DS) ---
DATE OF ADMISSION: 10/07/2020 DATE OF DISCHARGE: 10/08/2020 PRINCIPAL DIAGNOSIS: Gangrenous cholecystitis. PROCEDURE: The patient underwent laparoscopic cholecystectomy. HISTORY OF PRESENT ILLNESS: The patient is a 30-year-old male admitted through the Emergency Room wi th severe abdominal pain and found on his workup to have what appeared to be acute cholecystitis. On 10/07/2020, he was taken to the operating room where he was found to have severe necrotizing/gangreno us cholecystitis. He underwent laparoscopic cholecystectomy. I did not place a drain. The patient did well overnight and was felt stable for discharge home the next day on oral antibiotics, to be fol lowed in the surgical clinic. Job ID: [id number]
== END 2020-10-08 18:00 | disposition home or self-care (01) | DRG 410 ==
LOC: ED 05:52 → ASU 12:55 → 3N 12:57
DX: K82.A1 Gangrene of gallbladder in cholecystitis; Z79.899 Other long term (current) drug therapy; K82.8 Other specified diseases of gallbladder; Z51.81 Encounter for therapeutic drug level monitoring; J30.9 Allergic rhinitis, unspecified; Z79.82 Long term (current) use of aspirin; K80.12 Calculus of gallbladder with acute and chronic cholecystitis without obstruction; D47.3 Essential (hemorrhagic) thrombocythemia